=== PATIENT | male | born 1960 | race Two or more races ===

== ENCOUNTER 2019-12-08 08:26 | Inpatient (IN) | payer MEDICARE, MEDICAID ==
[~2019-12-08] VITALS: Ht 160 cm; Wt 89.4 kg
[~2019-12-08 08:26] MED LIST: GABA-529 PO; LOSA25TA26 PO; OMEP20TA2 PO; PRAV10TA35 PO; PROP40TA7 PO; QUET25TA PO; TAMS0.4C31 PO; TRAZ-251 PO
[2019-12-08] MEDS ORDERED: ONDANSETRON HCL 4MG/2ML INJ IV STA (09:47)
[2019-12-08] MEDS ORDERED: MORPHINE SULFATE 4 MG/ML CPJ (NOT FOR IM USE) IV STA (09:47)
[2019-12-08] MEDS ORDERED: SODIUM CHLORIDE 0.9% 1,000 ML IV ONE (09:47)
[2019-12-08 11:13] LABS: BASOPHILS % 0.7 % (0.0-2.0); EOSINOPHILS % 2.7 % (0.0-5.0); HEMATOCRIT. 45.1 % (42.0-52.0); HEMOGLOBIN. 15.1 g/dL (14.0-18.0); MEAN CORPUSCULAR HEMOGLOBIN 31.7 pg (28.0-32.0); MEAN CORPUSCULAR VOLUME 94.7 fL (80.0-94.0); MEAN PLATELET VOLUME 8.6 fl (7.4-10.4); MONOCYTES % 8.1 % (2.0-8.0); NEUTROPHILS % 60.5 % (40.0-76.0); PLATELET 236 x1000/uL (130-400); RED BLOOD CELL COUNT 4.76 mill/uL (4.7-6.1); RED CELL DISTRIBUTION WIDTH 13.5 % (11.6-14.6)
[2019-12-08 11:19] LABS: CHLORIDE 104 mEq/L (98-107)
[2019-12-08 11:20] LABS: CLARITY URINE CLEAR (CLEAR); COLOR URINE YELLOW (YELLOW); KETONES URINE NEGATIVE (NEGATIVE); LEUKOCYTE ESTERASE URINE NEGATIVE (NEGATIVE); NITRITE URINE NEGATIVE (NEGATIVE); OCCULT BLOOD URINE NEGATIVE (NEGATIVE); PH URINE >=9.0 (4.5-8.0); PROTEIN URINE 1+ (NEGATIVE); SPECIFIC GRAVITY URINE 1.019 (1.005-1.030); UROBILINOGEN URINE 0.2 E.U./dL (0.2-1.0)
[2019-12-08] MEDS ORDERED: MORPHINE SULFATE 4 MG/ML CPJ (NOT FOR IM USE) IV ONE (12:30)
[2019-12-08] MEDS ORDERED: LEVOFLOXACIN 500MG PREMIX 100 ML IV NR (14:00)
[2019-12-08] MEDS ORDERED: METRONIDAZOLE 500 MG PREMIX 100 ML IV NR (15:00)
[2019-12-08] MEDS ORDERED: KETOROLAC 15MG/ML VIAL IV ONE (18:15)
[2019-12-08 21:05] VITALS: BP 128/82
[2019-12-08] MEDS ORDERED: LORAZEPAM 0.5MG TABLET PO PRN (21:45)
[2019-12-08] MEDS ORDERED: GUAIFENESIN 200MG/10ML SUGAR FREE UDC PO PRN (21:45)
[2019-12-08] MEDS ORDERED: DOCUSATE SODIUM 100MG CAPSULE PO PRN (21:45)
[2019-12-08] MEDS ORDERED: CLONIDINE 0.1MG TABLET PO PRN (21:45)
[2019-12-08] MEDS ORDERED: ACETAMINOPHEN 325MG TABLET PO PRN (21:45)
[2019-12-08] MEDS ORDERED: IPRATROPIUM/ALBUTEROL 0.5-3(2.5)MG/3ML NEB HHN PRN (21:45)
[2019-12-08] MEDS: MORPHINE SULFATE 2 MG/ML CPJ (NOT FOR IM USE) IV PRN (22:01)
[2019-12-08] MEDS: CEFTRIAXONE 1 G PREMIX 50 ML IV SCH (23:48)
[2019-12-08] MEDS: SODIUM CHLORIDE 0.9% 1,000 ML IV SCH (23:49)
[2019-12-09] VITALS: BP 126/82
[2019-12-09] MEDS: METRONIDAZOLE 500 MG PREMIX 100 ML IV SCH ×4 (00:12→22:43)
[2019-12-09 04:00] VITALS: BP 137/79
[2019-12-09] MEDS: MORPHINE SULFATE 2 MG/ML CPJ (NOT FOR IM USE) IV PRN ×5 (04:04→21:09)
[2019-12-09 07:55] LABS: CHLORIDE 108 mEq/L (98-107)
[2019-12-09 07:59] LABS: BASOPHILS % 0.4 % (0.0-2.0); EOSINOPHILS % 7.4 % (0.0-5.0); HEMATOCRIT. 39.6 % (42.0-52.0); HEMOGLOBIN. 13.5 g/dL (14.0-18.0); LYMPHOCYTES % 25.3 % (20.0-50.0); MEAN CORPUSCULAR HEMOGLOBIN 32.1 pg (28.0-32.0); MEAN CORPUSCULAR VOLUME 94.3 fL (80.0-94.0); MEAN PLATELET VOLUME 8.1 fl (7.4-10.4); MONOCYTES % 7.9 % (2.0-8.0); PLATELET 198 x1000/uL (130-400); RED CELL DISTRIBUTION WIDTH 13.2 % (11.6-14.6)
[2019-12-09 08:00] VITALS: BP 141/83
[2019-12-09] MEDS: SODIUM CHLORIDE 0.9% 1,000 ML IV SCH ×2 (08:00→18:03)
[2019-12-09] MEDS ORDERED: METOCLOPRAMIDE HCL 10MG/2ML VIAL IV NR (10:00)
[2019-12-09 12:00] VITALS: BP 137/80
[2019-12-09] MEDS ORDERED: MIDAZOLAM HCL 5 MG/5 ML VIAL ONE (12:26)
[2019-12-09] MEDS ORDERED: FENTANYL CITRATE/PF 50MCG/ML 2ML VIAL ONE ×3 (12:27→12:48)
[2019-12-09] MEDS ORDERED: FENTANYL CITRATE/PF 50MCG/ML 2ML VIAL IV PRN (12:28)
[2019-12-09] MEDS ORDERED: MIDAZOLAM HCL 2 MG/2 ML VIAL IV PRN (12:29)
[2019-12-09] MEDS ORDERED: DIPHENHYDRAMINE 50MG/ML VIAL IV PRN (12:41)
[2019-12-09] MEDS ORDERED: DIPHENHYDRAMINE 50MG/ML VIAL ONE ×2 (12:43→12:51)
[2019-12-09 16:00] VITALS: BP 131/91
[2019-12-09 20:00] VITALS: BP 134/89
[2019-12-09] MEDS: TRAZODONE HCL 50MG TABLET PO SCH ×2 (20:54→21:10)
[2019-12-09] MEDS: QUETIAPINE FUMARATE 25MG TABLET PO SCH (21:09)
[2019-12-09] MEDS: GABAPENTIN 100MG CAPSULE PO SCH (21:09)
[2019-12-09] MEDS: TAMSULOSIN HCL 0.4MG SR CAPSULE PO SCH (21:10)
[2019-12-09] MEDS: ATORVASTATIN CALCIUM 10MG TABLET PO SCH (21:10)
[2019-12-09] MEDS: CEFTRIAXONE 1 G PREMIX 50 ML IV SCH (22:44)
[2019-12-10] VITALS: BP 138/87
[2019-12-10] MEDS: SODIUM CHLORIDE 0.9% 1,000 ML IV SCH ×2 (00:24→14:05)
[2019-12-10] MEDS: MORPHINE SULFATE 2 MG/ML CPJ (NOT FOR IM USE) IV PRN ×6 (01:27→23:40)
[2019-12-10 04:00] VITALS: BP 134/92
[2019-12-10] MEDS: METRONIDAZOLE 500 MG PREMIX 100 ML IV SCH ×2 (06:31→13:01)
[2019-12-10 07:41] LABS: BASOPHILS % 0.6 % (0.0-2.0); EOSINOPHILS % 10.7 % (0.0-5.0); HEMATOCRIT. 42.9 % (42.0-52.0); HEMOGLOBIN. 14.7 g/dL (14.0-18.0); LYMPHOCYTES % 35.9 % (20.0-50.0); MEAN CORPUSCULAR HEMOGLOBIN 32.5 pg (28.0-32.0); MEAN CORPUSCULAR VOLUME 94.4 fL (80.0-94.0); MEAN PLATELET VOLUME 8.2 fl (7.4-10.4); MONOCYTES % 7.4 % (2.0-8.0); NEUTROPHILS % 45.4 % (40.0-76.0); PLATELET 203 x1000/uL (130-400); RED BLOOD CELL COUNT 4.54 mill/uL (4.7-6.1); RED CELL DISTRIBUTION WIDTH 13.3 % (11.6-14.6)
[2019-12-10 07:55] LABS: CHLORIDE 104 mEq/L (98-107)
[2019-12-10 08:00] VITALS: BP 138/88
[2019-12-10 08:09] LABS: LDL CHOLESTEROL 116 mg/dL (5-100)
[2019-12-10 08:11] LABS: HDL CHOLESTEROL 68 mg/dL (40-59)
[2019-12-10 08:16] LABS: VITAMIN B12 SERUM 986 pg/mL (211-911)
[2019-12-10 08:24] LABS: FOLIC ACID (FOLATE) SERUM > 20.00 ng/mL (>5.38)
[2019-12-10] MEDS: HYDROCODONE/ACETAMINOPHEN 5/325MG TABLET PO PRN ×3 (08:58→17:22)
[2019-12-10] MEDS: LOSARTAN POTASSIUM 25 MG TABLET PO SCH (08:58)
[2019-12-10 12:00] VITALS: BP 119/81
[2019-12-10] MEDS ORDERED: IOHEXOL-300 100 ML BOTTLE ONE (14:57)
[2019-12-10] MEDS ORDERED: IODIXANOL 320MG/ML 100 ML BOTTLE IV ONE (14:58)
[2019-12-10] MEDS ORDERED: LIDOCAINE HCL 1% 20ML VIAL (Pyxis) INJ ONE (14:58)
[2019-12-10] MEDS ORDERED: HEPARIN 1,000 UNITS PREMIX 0 ML IV ONE (14:59)
[2019-12-10] MEDS ORDERED: MIDAZOLAM HCL 2 MG/2 ML VIAL ONE (15:02)
[2019-12-10] MEDS ORDERED: FENTANYL CITRATE/PF 50MCG/ML 2ML VIAL ONE (15:02)
[2019-12-10] MEDS: OMEPRAZOLE 20MG CAPSULE EXTENDED RELEASE PO SCH ×2 (15:20→21:12)
[2019-12-10 16:03] VITALS: BP 130/77
[2019-12-10 20:00] VITALS: BP 134/96
[2019-12-10] MEDS: TAMSULOSIN HCL 0.4MG SR CAPSULE PO SCH (21:12)
[2019-12-10] MEDS: CEFTRIAXONE 1 G PREMIX 50 ML IV SCH (21:12)
[2019-12-10] MEDS: ATORVASTATIN CALCIUM 10MG TABLET PO SCH (21:12)
[2019-12-10] MEDS: GABAPENTIN 100MG CAPSULE PO SCH (21:13)
[2019-12-10] MEDS: QUETIAPINE FUMARATE 25MG TABLET PO SCH (21:13)
[2019-12-10] MEDS: METRONIDAZOLE 500MG TABLET PO SCH (23:40)
[2019-12-11] MEDS: SODIUM CHLORIDE 0.9% 1,000 ML IV SCH ×2 (01:09→10:11)
[2019-12-11 04:00] VITALS: BP 155/88
[2019-12-11] MEDS: MORPHINE SULFATE 2 MG/ML CPJ (NOT FOR IM USE) IV PRN ×3 (05:00→13:27)
[2019-12-11] MEDS: METRONIDAZOLE 500MG TABLET PO SCH ×2 (05:00→13:27)
[2019-12-11] MEDS: OMEPRAZOLE 20MG CAPSULE EXTENDED RELEASE PO SCH (06:20)
[2019-12-11 06:39] LABS: CHLORIDE 105 mEq/L (98-107)
[2019-12-11 07:32] LABS: BASOPHILS % 0.5 % (0.0-2.0); EOSINOPHILS % 11.5 % (0.0-5.0); HEMATOCRIT. 42.7 % (42.0-52.0); HEMOGLOBIN. 14.3 g/dL (14.0-18.0); LYMPHOCYTES % 37.7 % (20.0-50.0); MEAN CORPUSCULAR HEMOGLOBIN 31.8 pg (28.0-32.0); MEAN CORPUSCULAR VOLUME 94.9 fL (80.0-94.0); MONOCYTES % 8.7 % (2.0-8.0); NEUTROPHILS % 41.6 % (40.0-76.0); PLATELET 210 x1000/uL (130-400); RED CELL DISTRIBUTION WIDTH 13.2 % (11.6-14.6)
[2019-12-11] MEDS: LOSARTAN POTASSIUM 25 MG TABLET PO SCH (07:51)
[2019-12-11 08:00] VITALS: BP 110/80
[2019-12-11] MEDS ORDERED: OMEP20CA14 PO (12:16)
[2019-12-11] MEDS ORDERED: METR-167 PO (12:16)
[2019-12-11 13:35] VITALS: BP 110/80
[2019-12-13] MEDS ORDERED: OMEPRAZOLE 20MG CAPSULE EXTENDED RELEASE PO SCH (07:20)
== END 2019-12-11 17:00 | disposition home or self-care (01) | DRG 392 ==
LOC: ER 08:26 → 6EST 18:02 → ENRESERV 19:13
PROVIDERS: ADMIT Internal Medicine; ATTEND Internal Medicine
PROC: 0DB68ZX Excision of Stomach, Via Natural or Artificial Opening Endoscopic, Diagnostic (ICD-10-PCS; principal; 2019-12-09)
DX: K29.60 Other gastritis without bleeding (principal); K57.32 Diverticulitis of large intestine without perforation or abscess without bleeding; K40.90 Unilateral inguinal hernia, without obstruction or gangrene, not specified as recurrent; K76.0 Fatty (change of) liver, not elsewhere classified; I10 Essential (primary) hypertension; E78.5 Hyperlipidemia, unspecified; D53.9 Nutritional anemia, unspecified; D72.1 Eosinophilia; Z96.653 Presence of artificial knee joint, bilateral; R80.9 Proteinuria, unspecified
CPT/HCPCS: 36415; 71045; 74176; 76700; 80048; 80053; 80061; 81003; 82607; 82746; 83036; 85025; 88305; 88313; 93005; 99152; 99285; J0696; J1200; J1644; J1885; J1956; J2250; J2270; J2405; J2765; J3010; J3490; J7030; Q9967; G0500

== ENCOUNTER 2020-02-29 13:39 | Inpatient (IN) | payer MEDICARE, MEDICAID ==
[~2020-02-29] VITALS: Ht 160 cm; Wt 87.1 kg
[~2020-02-29 13:39] MED LIST changes: +MY80 PO; +OMEP20CA14 PO; -OMEP20TA2 PO; +SUCR1ORA15 PO
[2020-02-29] MEDS ORDERED: ONDANSETRON HCL 4MG/2ML INJ IV STA (13:58)
[2020-02-29] MEDS ORDERED: FAMOTIDINE 20MG/2ML VIAL IV STA (13:58)
[2020-02-29] MEDS ORDERED: MORPHINE SULFATE 4 MG/ML CPJ (NOT FOR IM USE) IV STA (13:58)
[2020-02-29] MEDS ORDERED: SODIUM CHLORIDE 0.9% 1,000 ML IV ONE (13:58)
[2020-02-29 14:48] LABS: BASOPHILS % 0.4 % (0.0-2.0); EOSINOPHILS % 0.9 % (0.0-5.0); HEMATOCRIT. 46.3 % (42.0-52.0); LYMPHOCYTES % 37.4 % (20.0-50.0); MEAN CORPUSCULAR HEMOGLOBIN 31.2 pg (28.0-32.0); MEAN CORPUSCULAR VOLUME 90.2 fL (80.0-94.0); MEAN PLATELET VOLUME 8.2 fl (7.4-10.4); NEUTROPHILS % 52.3 % (40.0-76.0); PLATELET 293 x1000/uL (130-400); RED BLOOD CELL COUNT 5.13 mill/uL (4.7-6.1); RED CELL DISTRIBUTION WIDTH 13.3 % (11.6-14.6)
[2020-02-29 14:54] LABS: CHLORIDE 92 mEq/L (98-107)
[2020-02-29 14:58] LABS: CLARITY URINE CLEAR (CLEAR); COLOR URINE YELLOW (YELLOW); ETHANOL BLOOD 261 mg/dL; KETONES URINE NEGATIVE (NEGATIVE); LEUKOCYTE ESTERASE URINE NEGATIVE (NEGATIVE); NITRITE URINE NEGATIVE (NEGATIVE); OCCULT BLOOD URINE NEGATIVE (NEGATIVE); PROTEIN URINE NEGATIVE (NEGATIVE); PROTHROMBIN TIME 10.5 sec (9.6-11.0); SPECIFIC GRAVITY URINE 1.003 (1.005-1.030); UROBILINOGEN URINE 0.2 E.U./dL (0.2-1.0)
[2020-02-29 15:11] LABS: *BARBITURATES SCREEN URINE NEGATIVE (NEGATIVE)
[2020-02-29 15:12] LABS: *AMPHETAMINES SCREEN URINE NEGATIVE (NEGATIVE); *BENZODIAZEPINES SCREEN URINE NEGATIVE (NEGATIVE); *COCAINE SCREEN URINE NEGATIVE (NEGATIVE); CANNABINOID URINE SCREEN NEGATIVE (NEGATIVE); METHADONE URINE SCREEN NEGATIVE (NEGATIVE); OPIATES URINE SCREEN NEGATIVE (NEGATIVE); PHENCYCLIDINE URINE SCREEN NEGATIVE (NEGATIVE)
[2020-02-29] MEDS ORDERED: ASPIRIN 81MG TABLET PO ONE (16:15)
[2020-02-29] MEDS ORDERED: KCL 10MEQ/50ML PREMIX 50 ML IV ONE (16:15)
[2020-02-29] MEDS ORDERED: POTASSIUM CHLORIDE 20MEQ TABLET SR PO ONE (16:15)
[2020-02-29] MEDS ORDERED: LORAZEPAM 2MG/ML CPJ IV ONE (16:30)
[2020-02-29] MEDS: MORPHINE SULFATE 2 MG/ML CPJ (NOT FOR IM USE) IV PRN (21:13)
[2020-03-01] MEDS: MORPHINE SULFATE 2 MG/ML CPJ (NOT FOR IM USE) IV PRN ×4 (01:28→20:45)
[2020-03-01] MEDS ORDERED: CLONIDINE 0.1MG TABLET PO PRN (10:15)
[2020-03-01] MEDS ORDERED: LORAZEPAM 0.5MG TABLET PO PRN (10:15)
[2020-03-01] MEDS ORDERED: GUAIFENESIN 200MG/10ML SUGAR FREE UDC PO PRN (10:15)
[2020-03-01] MEDS ORDERED: NITROGLYCERIN 0.4MG TABLET SL SL PRN (10:15)
[2020-03-01] MEDS ORDERED: IPRATROPIUM/ALBUTEROL 0.5-3(2.5)MG/3ML NEB HHN PRN (10:15)
[2020-03-01] MEDS ORDERED: ACETAMINOPHEN 325MG TABLET PO PRN (10:15)
[2020-03-01] MEDS ORDERED: MAGNESIUM/ALUMINUM HYDROXIDE/SIMETHICONE 30ML UDC PO PRN (10:15)
[2020-03-01] MEDS ORDERED: DOCUSATE SODIUM 100MG CAPSULE PO PRN (10:15)
[2020-03-01] MEDS: ONDANSETRON HCL 4MG/2ML INJ IV PRN ×2 (10:53→10:54)
[2020-03-01] MEDS: HYDROCODONE/ACETAMINOPHEN 5/325MG TABLET PO PRN (10:53)
[2020-03-01 12:39] LABS: BASOPHILS % 0.7 % (0.0-2.0); EOSINOPHILS % 4.7 % (0.0-5.0); HEMATOCRIT. 45.1 % (42.0-52.0); HEMOGLOBIN. 15.3 g/dL (14.0-18.0); MEAN CORPUSCULAR HEMOGLOBIN 31.1 pg (28.0-32.0); MEAN CORPUSCULAR VOLUME 91.4 fL (80.0-94.0); MEAN PLATELET VOLUME 8.1 fl (7.4-10.4); NEUTROPHILS % 58.6 % (40.0-76.0); PLATELET 247 x1000/uL (130-400); RED BLOOD CELL COUNT 4.93 mill/uL (4.7-6.1); RED CELL DISTRIBUTION WIDTH 13.3 % (11.6-14.6)
[2020-03-01 12:56] LABS: CHLORIDE 101 mEq/L (98-107)
[2020-03-01] MEDS: PANTOPRAZOLE SODIUM 40 MG/VIAL IV SCH (12:56)
[2020-03-01] MEDS: METOPROLOL TARTRATE 25MG TABLET PO SCH ×2 (12:57→20:31)
[2020-03-01 13:01] LABS: PHOSPHORUS 2.1 mg/dL (2.5-4.9)
[2020-03-01 13:06] LABS: CREATINE KINASE MB FRACTION 2.7 ng/mL (0.5-3.6)
[2020-03-01 13:09] LABS: CREATINE KINASE 392 IU/L (39-308)
[2020-03-01 18:46] VITALS: BP 135/93
[2020-03-01 19:03] VITALS: BP 135/93
[2020-03-01 20:00] VITALS: BP 134/88
[2020-03-01] MEDS ORDERED: POTASSIUM PHOS,M-BASIC-D-BASIC 30 MMOL in DEXT 5% WATER 500 ML IV ONE (20:00)
[2020-03-01] MEDS ORDERED: FOLIC ACID 1 MG, MVI, ADULT NO.1 10 ML in DEXTROSE 5% WATER 1,000 ML IV ONE ×3 (20:00)
[2020-03-01] MEDS: QUETIAPINE FUMARATE 25MG TABLET PO SCH (20:29)
[2020-03-01] MEDS: ATORVASTATIN CALCIUM 10MG TABLET PO SCH (20:29)
[2020-03-01] MEDS: CHLORDIAZEPOXIDE 25MG CAPSULE PO SCH (20:29)
[2020-03-01] MEDS: TRAZODONE HCL 50MG TABLET PO SCH (20:31)
[2020-03-01] MEDS: TAMSULOSIN HCL 0.4MG SR CAPSULE PO SCH (20:31)
[2020-03-01] MEDS: SODIUM CHLORIDE 0.9% 1,000 ML IV SCH (20:32)
[2020-03-01] MEDS: SUCRALFATE 1 G/10 ML UDC PO SCH (20:33)
[2020-03-01 22:00] VITALS: BP 140/85
[2020-03-02] VITALS (12 sets, daily range): BP systolic 94–156; BP diastolic 62–98
[2020-03-02] MEDS: MORPHINE SULFATE 2 MG/ML CPJ (NOT FOR IM USE) IV PRN ×2 (01:25→05:36)
[2020-03-02] MEDS: SODIUM CHLORIDE 0.9% 1,000 ML IV SCH ×2 (04:30→18:00)
[2020-03-02] MEDS: ONDANSETRON HCL 4MG/2ML INJ IV PRN (05:15)
[2020-03-02] MEDS: SUCRALFATE 1 G/10 ML UDC PO SCH ×4 (05:34→20:49)
[2020-03-02] MEDS: CHLORDIAZEPOXIDE 25MG CAPSULE PO SCH ×3 (05:34→20:49)
[2020-03-02 07:15] LABS: HEMATOCRIT. 44.1 % (42.0-52.0); MEAN CORPUSCULAR HEMOGLOBIN 31.2 pg (28.0-32.0); MEAN CORPUSCULAR VOLUME 91.8 fL (80.0-94.0); MEAN PLATELET VOLUME 8.2 fl (7.4-10.4); PLATELET 251 x1000/uL (130-400); RED CELL DISTRIBUTION WIDTH 13.6 % (11.6-14.6)
[2020-03-02 07:28] LABS: CHLORIDE 100 mEq/L (98-107)
[2020-03-02] MEDS: LOSARTAN POTASSIUM 25 MG TABLET PO SCH (09:43)
[2020-03-02] MEDS: METOPROLOL TARTRATE 25MG TABLET PO SCH ×2 (09:43→20:49)
[2020-03-02] MEDS: THIAMINE HCL 100MG TABLET PO SCH (09:44)
[2020-03-02] MEDS: PANTOPRAZOLE SODIUM 40 MG/VIAL IV SCH (09:44)
[2020-03-02 10:55] LABS: PLATELET ESTIMATE NORMAL
[2020-03-02] MEDS: HYDROCODONE/ACETAMINOPHEN 5/325MG TABLET PO PRN ×2 (13:08→20:48)
[2020-03-02] MEDS: QUETIAPINE FUMARATE 25MG TABLET PO SCH (20:48)
[2020-03-02] MEDS: TRAZODONE HCL 50MG TABLET PO SCH (20:48)
[2020-03-02] MEDS: ATORVASTATIN CALCIUM 10MG TABLET PO SCH (20:48)
[2020-03-02] MEDS: TAMSULOSIN HCL 0.4MG SR CAPSULE PO SCH (20:49)
[2020-03-03] VITALS: BP 133/86
[2020-03-03] MEDS: SODIUM CHLORIDE 0.9% 1,000 ML IV SCH (00:09)
[2020-03-03 02:00] VITALS: BP 125/80
[2020-03-03 04:00] VITALS: BP 92/61
[2020-03-03 05:31] VITALS: BP 106/71
[2020-03-03] MEDS: CHLORDIAZEPOXIDE 25MG CAPSULE PO SCH (05:56)
[2020-03-03] MEDS: SUCRALFATE 1 G/10 ML UDC PO SCH ×2 (05:56→12:21)
[2020-03-03 07:08] LABS: CHLORIDE 106 mEq/L (98-107)
[2020-03-03 07:11] LABS: HEMATOCRIT. 43.5 % (42.0-52.0); HEMOGLOBIN. 14.6 g/dL (14.0-18.0); MEAN CORPUSCULAR VOLUME 92.8 fL (80.0-94.0); MEAN PLATELET VOLUME 8.4 fl (7.4-10.4); PLATELET 235 x1000/uL (130-400); RED BLOOD CELL COUNT 4.69 mill/uL (4.7-6.1); RED CELL DISTRIBUTION WIDTH 13.8 % (11.6-14.6)
[2020-03-03 08:02] VITALS: BP 118/75
[2020-03-03] MEDS: PANTOPRAZOLE SODIUM 40 MG/VIAL IV SCH (08:35)
[2020-03-03] MEDS: LOSARTAN POTASSIUM 25 MG TABLET PO SCH (08:36)
[2020-03-03] MEDS: THIAMINE HCL 100MG TABLET PO SCH (08:36)
[2020-03-03] MEDS: METOPROLOL TARTRATE 25MG TABLET PO SCH (08:36)
[2020-03-03 09:05] VITALS: BP 138/82
[2020-03-03 13:54] LABS: PLATELET ESTIMATE NORMAL
== END 2020-03-03 15:30 | disposition home or self-care (01) | DRG 897 ==
LOC: ER 13:39 → 3WST 18:48 → EDBEDREQ 18:52 → EDBEDREQTM 18:52 → CANRESERV 03-01 07:42 → ENRESERV 03-01 07:42
PROVIDERS: ADMIT Internal Medicine; ATTEND Internal Medicine
DX: F10.129 Alcohol abuse with intoxication, unspecified (principal); E87.1 Hypo-osmolality and hyponatremia; K29.70 Gastritis, unspecified, without bleeding; E87.6 Hypokalemia; I11.9 Hypertensive heart disease without heart failure; E78.5 Hyperlipidemia, unspecified; F41.1 Generalized anxiety disorder; K40.90 Unilateral inguinal hernia, without obstruction or gangrene, not specified as recurrent; K76.0 Fatty (change of) liver, not elsewhere classified; N32.0 Bladder-neck obstruction; G47.00 Insomnia, unspecified; E78.00 Pure hypercholesterolemia, unspecified; Z96.653 Presence of artificial knee joint, bilateral; R07.89 Other chest pain; K21.9 Gastro-esophageal reflux disease without esophagitis; Z82.49 Family history of ischemic heart disease and other diseases of the circulatory system; I25.2 Old myocardial infarction; Z79.899 Other long term (current) drug therapy
CPT/HCPCS: 36415; 71045; 80048; 80053; 80305; 80320; 81003; 82550; 82553; 83735; 83880; 84100; 84484; 85025; 85379; 93005; 93306; 99285; C9113; J2060; J2270; J2405; J3480; J3490; J7030; J7060; J7070; G0480

== ENCOUNTER 2020-05-24 06:33 | Emergency (ER) | payer MEDICARE, MEDICAID ==
[~2020-05-24] VITALS: Ht 160 cm; Wt 90.0 kg
[2020-05-24] MEDS ORDERED: ONDANSETRON HCL 4MG/2ML INJ IV STA (06:50)
[2020-05-24] MEDS ORDERED: MORPHINE SULFATE 4 MG/ML CPJ (NOT FOR IM USE) IV STA (06:50)
[2020-05-24 07:37] LABS: CLARITY URINE CLEAR (CLEAR); COLOR URINE DK YELLOW (YELLOW); KETONES URINE 1+ (NEGATIVE); LEUKOCYTE ESTERASE URINE NEGATIVE (NEGATIVE); NITRITE URINE NEGATIVE (NEGATIVE); OCCULT BLOOD URINE NEGATIVE (NEGATIVE); PH URINE 7.5 (4.5-8.0); PROTEIN URINE TRACE (NEGATIVE); SPECIFIC GRAVITY URINE 1.013 (1.005-1.030); UROBILINOGEN URINE 0.2 E.U./dL (0.2-1.0)
[2020-05-24 07:38] LABS: BASOPHILS % 0.7 % (0.0-2.0); EOSINOPHILS % 2.3 % (0.0-5.0); HEMATOCRIT. 51.4 % (42.0-52.0); HEMOGLOBIN. 17.6 g/dL (14.0-18.0); LYMPHOCYTES % 28.2 % (20.0-50.0); MEAN CORPUSCULAR VOLUME 87.5 fL (80.0-94.0); MEAN PLATELET VOLUME 8.3 fl (7.4-10.4); MONOCYTES % 7.3 % (2.0-8.0); NEUTROPHILS % 61.5 % (40.0-76.0); PLATELET 272 x1000/uL (130-400); RED BLOOD CELL COUNT 5.87 mill/uL (4.7-6.1)
[2020-05-24 07:39] LABS: CHLORIDE 98 mEq/L (98-107)
[2020-05-24 07:41] LABS: PROTHROMBIN TIME 10.7 sec (9.6-11.0)
[2020-05-24] MEDS ORDERED: KETOROLAC 30MG/ML VIAL IV ONE (08:45)
[2020-05-24 08:53] VITALS: BP 130/95
== END 2020-05-24 12:00 | disposition home or self-care (01) ==
LOC: ER 06:33
DX: R10.13 Epigastric pain (principal); I10 Essential (primary) hypertension; I25.2 Old myocardial infarction; E78.00 Pure hypercholesterolemia, unspecified
CPT/HCPCS: 36415; 74176; 80053; 81003; 83690; 85025; 85610; 96374; 96375; 99284; J1885; J2270; J2405

== ENCOUNTER 2020-06-09 01:57 | Inpatient (IN) | payer MEDICARE, OTHER ==
[~2020-06-09] VITALS: Ht 160 cm; Wt 90.7 kg
[2020-06-09] MEDS ORDERED: SODIUM CHLORIDE 0.9% 1,000 ML IV ONE (03:29)
[2020-06-09] MEDS ORDERED: METOCLOPRAMIDE HCL 10MG/2ML VIAL IV STA (03:29)
[2020-06-09] MEDS ORDERED: FAMOTIDINE 20MG/2ML VIAL IV STA (03:29)
[2020-06-09] MEDS ORDERED: MORPHINE SULFATE 4 MG/ML CPJ (NOT FOR IM USE) IV STA (03:29)
[2020-06-09 04:15] LABS: BASOPHILS % 0.2 % (0.0-2.0); MEAN CORPUSCULAR HEMOGLOBIN 29.5 pg (28.0-32.0); MEAN CORPUSCULAR VOLUME 86.7 fL (80.0-94.0); MEAN PLATELET VOLUME 7.9 fl (7.4-10.4); NEUTROPHILS % 74.8 % (40.0-76.0); PLATELET 329 x1000/uL (130-400); RED BLOOD CELL COUNT 5.08 mill/uL (4.7-6.1); RED CELL DISTRIBUTION WIDTH 14.2 % (11.6-14.6)
[2020-06-09 04:22] LABS: CHLORIDE 92 mEq/L (98-107)
[2020-06-09 04:37] LABS: ETHANOL BLOOD < 10 mg/dL
[2020-06-09] MEDS ORDERED: MORPHINE SULFATE 4 MG/ML CPJ (NOT FOR IM USE) IV NR (05:09)
[2020-06-09] MEDS ORDERED: ONDANSETRON HCL 4MG/2ML INJ IV NR (05:09)
[2020-06-09 05:19] LABS: CLARITY URINE CLEAR (CLEAR); COLOR URINE YELLOW (YELLOW); KETONES URINE 3+ (NEGATIVE); LEUKOCYTE ESTERASE URINE NEGATIVE (NEGATIVE); NITRITE URINE NEGATIVE (NEGATIVE); OCCULT BLOOD URINE 3+ (NEGATIVE); PROTEIN URINE 2+ (NEGATIVE); SPECIFIC GRAVITY URINE 1.017 (1.005-1.030); UROBILINOGEN URINE 0.2 E.U./dL (0.2-1.0)
[2020-06-09] MEDS ORDERED: GUAIFENESIN 200MG/10ML SUGAR FREE UDC PO PRN (08:45)
[2020-06-09] MEDS ORDERED: SODIUM CHLORIDE 0.9% 1,000 ML IV SCH (08:45)
[2020-06-09] MEDS ORDERED: CLONIDINE 0.1MG TABLET PO PRN (08:45)
[2020-06-09] MEDS ORDERED: DOCUSATE SODIUM 100MG CAPSULE PO PRN (08:45)
[2020-06-09] MEDS ORDERED: ACETAMINOPHEN 325MG TABLET PO PRN ×2 (08:45)
[2020-06-09] MEDS ORDERED: LORAZEPAM 0.5MG TABLET PO PRN (08:45)
[2020-06-09] MEDS ORDERED: IPRATROPIUM/ALBUTEROL 0.5-3(2.5)MG/3ML NEB HHN PRN (08:45)
[2020-06-09] MEDS: MORPHINE SULFATE 2 MG/ML CPJ (NOT FOR IM USE) IV PRN ×3 (08:56→19:49)
[2020-06-09] MEDS: PANTOPRAZOLE SODIUM 40 MG/VIAL IV SCH (08:56)
[2020-06-09] MEDS ORDERED: POTASSIUM CHLORIDE INJ 40 MEQ in DEXT 5% WATER 250 ML IV NR (09:00)
[2020-06-09 09:20] LABS: SODIUM URINE RANDOM 75 mEq/L
[2020-06-09 10:00] VITALS: BP 140/75
[2020-06-09 12:00] VITALS: BP 132/75
[2020-06-09] MEDS: HYDROCODONE/ACETAMINOPHEN 5/325MG TABLET PO PRN ×2 (15:12→23:02)
[2020-06-09 16:00] VITALS: BP 130/84
[2020-06-09] MEDS ORDERED: DIATR MEGLU/DIATRIZOATE SOLN 30ML PO SCH (16:30)
[2020-06-09] MEDS: GABAPENTIN 100MG CAPSULE PO SCH (16:50)
[2020-06-09] MEDS: SUCRALFATE 1G TABLET PO SCH ×2 (16:50→23:02)
[2020-06-09] MEDS: SODIUM CHLORIDE 0.9% 1,000 ML IV SCH (16:51)
[2020-06-09] MEDS: ONDANSETRON HCL 4MG/2ML INJ IV PRN (20:45)
[2020-06-09] MEDS: TRAZODONE HCL 50MG TABLET PO PRN (23:01)
[2020-06-09] MEDS: TAMSULOSIN HCL 0.4MG SR CAPSULE PO SCH (23:01)
[2020-06-09] MEDS: QUETIAPINE FUMARATE 25MG TABLET PO SCH (23:02)
[2020-06-09] MEDS: ATORVASTATIN CALCIUM 10MG TABLET PO SCH (23:02)
[2020-06-09] MEDS ORDERED: IOHEXOL-300 100 ML BOTTLE ONE (23:26)
[2020-06-09] MEDS ORDERED: POTASSIUM CHLORIDE 20MEQ TABLET SR PO NR (23:34)
[2020-06-10] VITALS: BP 151/79
[2020-06-10] MEDS: ASPIRIN 81MG TABLET PO SCH ×2 (00:03→09:19)
[2020-06-10] MEDS: MORPHINE SULFATE 2 MG/ML CPJ (NOT FOR IM USE) IV PRN ×6 (02:03→23:24)
[2020-06-10] MEDS ORDERED: POTASSIUM CHLORIDE 20MEQ TABLET SR PO SCH (03:30)
[2020-06-10 04:00] VITALS: BP 119/83
[2020-06-10] MEDS: ONDANSETRON HCL 4MG/2ML INJ IV PRN ×2 (06:12→23:35)
[2020-06-10] MEDS: SUCRALFATE 1G TABLET PO SCH ×4 (07:10→21:39)
[2020-06-10 08:00] VITALS: BP 163/103
[2020-06-10] MEDS: PANTOPRAZOLE SODIUM 40 MG/VIAL IV SCH (09:19)
[2020-06-10] MEDS: HYDROCODONE/ACETAMINOPHEN 5/325MG TABLET PO PRN (09:20)
[2020-06-10] MEDS: LOSARTAN POTASSIUM 25 MG TABLET PO SCH (09:20)
[2020-06-10] MEDS: GABAPENTIN 100MG CAPSULE PO SCH ×3 (09:20→17:26)
[2020-06-10 12:00] VITALS: BP 127/80
[2020-06-10] MEDS: SODIUM CHLORIDE 0.9% 1,000 ML IV SCH (13:25)
[2020-06-10] MEDS ORDERED: LEVOFLOXACIN 500MG TABLET PO SCH (14:30)
[2020-06-10] MEDS ORDERED: METRONIDAZOLE 500MG TABLET PO SCH (14:30)
[2020-06-10 16:00] VITALS: BP 113/82
[2020-06-10 17:09] LABS: BASOPHILS % 1.2 % (0.0-2.0); HEMATOCRIT. 41.5 % (42.0-52.0); HEMOGLOBIN. 14.1 g/dL (14.0-18.0); LYMPHOCYTES % 35.5 % (20.0-50.0); MEAN CORPUSCULAR HEMOGLOBIN 29.8 pg (28.0-32.0); MEAN CORPUSCULAR VOLUME 87.7 fL (80.0-94.0); MEAN PLATELET VOLUME 7.2 fl (7.4-10.4); MONOCYTES % 10.2 % (2.0-8.0); NEUTROPHILS % 51.1 % (40.0-76.0); PLATELET 250 x1000/uL (130-400); RED BLOOD CELL COUNT 4.73 mill/uL (4.7-6.1); RED CELL DISTRIBUTION WIDTH 14.3 % (11.6-14.6)
[2020-06-10 17:16] LABS: CHLORIDE 103 mEq/L (98-107)
[2020-06-10] MEDS ORDERED: POTASSIUM CHLORIDE 20MEQ TABLET SR PO NR (17:30)
[2020-06-10 18:38] LABS: CREATINE KINASE MB FRACTION 8.8 ng/mL (0.5-3.6)
[2020-06-10 20:00] VITALS: BP 131/94
[2020-06-10] MEDS: ATORVASTATIN CALCIUM 10MG TABLET PO SCH (21:39)
[2020-06-10] MEDS: TRAZODONE HCL 50MG TABLET PO PRN (21:39)
[2020-06-10] MEDS: TAMSULOSIN HCL 0.4MG SR CAPSULE PO SCH (21:39)
[2020-06-10] MEDS: QUETIAPINE FUMARATE 25MG TABLET PO SCH (21:39)
[2020-06-10] MEDS: SIMETHICONE 80MG TABLET CHEW PO PRN (21:49)
[2020-06-11] VITALS: BP 133/80
[2020-06-11] MEDS: MORPHINE SULFATE 2 MG/ML CPJ (NOT FOR IM USE) IV PRN (03:28)
[2020-06-11 04:00] VITALS: BP 128/79
[2020-06-11] MEDS: SUCRALFATE 1G TABLET PO SCH ×3 (05:29→17:16)
[2020-06-11 08:00] VITALS: BP 114/81
[2020-06-11] MEDS: SODIUM CHLORIDE 0.9% 1,000 ML IV SCH (08:15)
[2020-06-11] MEDS: SIMETHICONE 80MG TABLET CHEW PO PRN (08:56)
[2020-06-11] MEDS: PANTOPRAZOLE SODIUM 40 MG/VIAL IV SCH (08:56)
[2020-06-11] MEDS: ASPIRIN 81MG TABLET PO SCH (08:56)
[2020-06-11] MEDS: HYDROCODONE/ACETAMINOPHEN 5/325MG TABLET PO PRN (08:57)
[2020-06-11] MEDS: GABAPENTIN 100MG CAPSULE PO SCH ×3 (08:57→17:00)
[2020-06-11] MEDS: LOSARTAN POTASSIUM 25 MG TABLET PO SCH (08:57)
[2020-06-11 12:00] VITALS: BP 130/78
[2020-06-11] MEDS: METOCLOPRAMIDE HCL 10MG/2ML VIAL IV SCH ×2 (12:44→17:16)
[2020-06-11 15:19] LABS: CHLORIDE 103 mEq/L (98-107)
[2020-06-11 15:27] LABS: CREATINE KINASE 606 IU/L (39-308)
[2020-06-11 16:00] VITALS: BP 143/83
== END 2020-06-11 17:39 | disposition left against medical advice (07) | DRG 392 ==
LOC: ER 02:03 → 7WST 05:10 → EDBEDREQTM 05:38 → EDBEDREQ 05:38 → ENRESERV 07:54 → 6WST 06-10 15:05
PROVIDERS: ADMIT Internal Medicine; ATTEND Internal Medicine
DX: K29.20 Alcoholic gastritis without bleeding (principal); I50.32 Chronic diastolic (congestive) heart failure; E87.1 Hypo-osmolality and hyponatremia; M62.82 Rhabdomyolysis; E87.2 Acidosis; I11.0 Hypertensive heart disease with heart failure; E86.1 Hypovolemia; E87.6 Hypokalemia; E87.8 Other disorders of electrolyte and fluid balance, not elsewhere classified; K57.90 Diverticulosis of intestine, part unspecified, without perforation or abscess without bleeding; K40.90 Unilateral inguinal hernia, without obstruction or gangrene, not specified as recurrent; N32.0 Bladder-neck obstruction; K21.9 Gastro-esophageal reflux disease without esophagitis; Z20.828 Contact with and (suspected) exposure to other viral communicable diseases; F41.1 Generalized anxiety disorder; Z96.653 Presence of artificial knee joint, bilateral; G47.00 Insomnia, unspecified; I25.2 Old myocardial infarction; D72.810 Lymphocytopenia; D72.821 Monocytosis (symptomatic); I25.10 Atherosclerotic heart disease of native coronary artery without angina pectoris; K76.0 Fatty (change of) liver, not elsewhere classified; E78.5 Hyperlipidemia, unspecified; F10.10 Alcohol abuse, uncomplicated
CPT/HCPCS: 36415; 71045; 74177; 76705; 80048; 80053; 80320; 81003; 82533; 82550; 82553; 83605; 83735; 83935; 84132; 84295; 84300; 84443; 84484; 85025; 87635; 93005; 93306; 99285; C9113; J2270; J2405; J2765; J3480; J3490; J7030; J7060; Q9963; Q9967; G0480

== ENCOUNTER 2021-09-02 01:22 | Emergency (ER) | payer MEDICARE, MEDICAID ==
[~2021-09-02] VITALS: Ht 165.1 cm; Wt 92.0 kg
[~2021-09-02 01:22] MED LIST changes: -MY80 PO; +SIME80TA16 PO
[2021-09-02] MEDS ORDERED: MAGNESIUM/ALUMINUM HYDROXIDE/SIMETHICONE 30ML UDC PO STA ×2 (01:47→06:14)
[2021-09-02] MEDS ORDERED: FAMOTIDINE 20MG/2ML VIAL IV STA (01:47)
[2021-09-02] MEDS ORDERED: SODIUM CHLORIDE 0.9% 1,000 ML IV ONE (02:00)
[2021-09-02 02:52] LABS: BASOPHILS % 0.7 % (0.0-2.0); EOSINOPHILS % 0.4 % (0.0-5.0); HEMATOCRIT. 49.2 % (42.0-52.0); HEMOGLOBIN. 16.1 g/dL (14.0-18.0); LYMPHOCYTES % 36.5 % (20.0-50.0); MEAN CORPUSCULAR HEMOGLOBIN 30.2 pg (28.0-32.0); MEAN CORPUSCULAR VOLUME 91.9 fL (80.0-94.0); MONOCYTES % 8.7 % (2.0-8.0); NEUTROPHILS % 53.7 % (40.0-76.0); PLATELET 301 x1000/uL (130-400); RED BLOOD CELL COUNT 5.35 mill/uL (4.7-6.1); RED CELL DISTRIBUTION WIDTH 14.9 % (11.6-14.6)
[2021-09-02 03:12] LABS: CLARITY URINE CLEAR (CLEAR); COLOR URINE DARK YELLOW (YELLOW); KETONES URINE 1+ (NEGATIVE); LEUKOCYTE ESTERASE URINE NEGATIVE (NEGATIVE); NITRITE URINE NEGATIVE (NEGATIVE); OCCULT BLOOD URINE NEGATIVE (NEGATIVE); PH URINE 5.5 (4.5-8.0); PROTEIN URINE 2+ (NEGATIVE); SPECIFIC GRAVITY URINE 1.026 (1.005-1.030)
[2021-09-02] MEDS ORDERED: KETOROLAC 15MG/ML VIAL IV ONE (03:30)
[2021-09-02 03:43] LABS: CHLORIDE 104 mEq/L (98-107)
[2021-09-02] MEDS ORDERED: ONDANSETRON HCL 4MG/2ML INJ IV ONE (03:45)
[2021-09-02] MEDS ORDERED: ONDANSETRON HCL 4MG/2ML INJ IV STA (03:51)
[2021-09-02] MEDS ORDERED: MORPHINE SULFATE 4 MG/ML CPJ (NOT FOR IM USE) IV STA (03:51)
[2021-09-02 05:30] VITALS: BP 121/90
[2021-09-02] MEDS ORDERED: VISCOUS LIDOCAINE 2% 15 ML UDC PO STA (06:14)
== END 2021-09-02 06:39 | disposition home or self-care (01) ==
LOC: ER 01:22
DX: R10.13 Epigastric pain (principal); K21.9 Gastro-esophageal reflux disease without esophagitis; E78.00 Pure hypercholesterolemia, unspecified; I10 Essential (primary) hypertension; Z79.899 Other long term (current) drug therapy
CPT/HCPCS: 36415; 71045; 74176; 76700; 80053; 81003; 83690; 85025; 93005; 96361; 96374; 96375; 96376; 99285; J1885; J2270; J2405; J3490; J7030

== ENCOUNTER 2021-12-01 10:12 | Inpatient (IN) | payer BC, MEDICAID ==
[~2021-12-01] VITALS: Ht 160 cm; Wt 90.3 kg
[2021-12-01] MEDS ORDERED: ONDANSETRON HCL 4MG/2ML INJ IV STA (10:31)
[2021-12-01] MEDS ORDERED: SODIUM CHLORIDE 0.9% 1,000 ML IV ONE (10:45)
[2021-12-01 11:11] LABS: BASOPHILS % 0.1 % (0.0-2.0); HEMOGLOBIN. 14.2 g/dL (14.0-18.0); LYMPHOCYTES % 19.7 % (20.0-50.0); MEAN CORPUSCULAR HEMOGLOBIN 29.8 pg (28.0-32.0); MEAN CORPUSCULAR VOLUME 90.3 fL (80.0-94.0); MEAN PLATELET VOLUME 7.5 fl (7.4-10.4); MONOCYTES % 6.5 % (2.0-8.0); NEUTROPHILS % 73.7 % (40.0-76.0); PLATELET 268 x1000/uL (130-400); RED BLOOD CELL COUNT 4.76 mill/uL (4.7-6.1); RED CELL DISTRIBUTION WIDTH 15.3 % (11.6-14.6)
[2021-12-01 11:14] LABS: CHLORIDE 102 mEq/L (98-107)
[2021-12-01] MEDS ORDERED: FAMOTIDINE 20MG/2ML VIAL IV ONE (11:15)
[2021-12-01 11:17] LABS: PROTHROMBIN TIME 10.4 sec (9.6-11.0)
[2021-12-01 11:18] LABS: ETHANOL BLOOD < 10 mg/dL
[2021-12-01 12:01] LABS: CLARITY URINE CLEAR (CLEAR); COLOR URINE YELLOW (YELLOW); KETONES URINE NEGATIVE (NEGATIVE); LEUKOCYTE ESTERASE URINE NEGATIVE (NEGATIVE); NITRITE URINE NEGATIVE (NEGATIVE); OCCULT BLOOD URINE NEGATIVE (NEGATIVE); PH URINE 7.5 (4.5-8.0); PROTEIN URINE NEGATIVE (NEGATIVE); UROBILINOGEN URINE 0.2 E.U./dL (0.2-1.0)
[2021-12-01] MEDS ORDERED: POTASSIUM CHLORIDE 20MEQ TABLET SR PO ONE (12:15)
[2021-12-01] MEDS ORDERED: ASPIRIN 81MG TABLET PO ONE (12:15)
[2021-12-01] MEDS ORDERED: VISCOUS LIDOCAINE 2% 15 ML UDC MM STA (12:35)
[2021-12-01 12:55] LABS: *AMPHETAMINES SCREEN URINE NEGATIVE (NEGATIVE); *BARBITURATES SCREEN URINE NEGATIVE (NEGATIVE); *BENZODIAZEPINES SCREEN URINE PRESUMTIVE POSITIVE (NEGATIVE); *COCAINE SCREEN URINE NEGATIVE (NEGATIVE); CANNABINOID URINE SCREEN NEGATIVE (NEGATIVE); METHADONE URINE SCREEN NEGATIVE (NEGATIVE); OPIATES URINE SCREEN NEGATIVE (NEGATIVE); PHENCYCLIDINE URINE SCREEN NEGATIVE (NEGATIVE)
[2021-12-01] MEDS ORDERED: MAGNESIUM/ALUMINUM HYDROXIDE/SIMETHICONE 30ML UDC PO NR (15:00)
[2021-12-01] MEDS ORDERED: ENOXAPARIN 40MG/0.4ML SYR SUBCUT SCH (15:00)
[2021-12-01] MEDS ORDERED: MVI, ADULT NO.1 10 ML, FOLIC ACID 1 MG, THIAMINE HCL 100 MG in SODIUM CHLORIDE 0.9% 1,0... IV ONE ×4 (15:00)
[2021-12-01] MEDS ORDERED: MAGNESIUM/ALUMINUM HYDROXIDE/SIMETHICONE 30ML UDC PO PRN (15:00)
[2021-12-01] MEDS ORDERED: VISCOUS LIDOCAINE 2% 15 ML UDC MM NR (15:00)
[2021-12-01] MEDS ORDERED: CLONIDINE 0.1MG TABLET PO PRN (15:00)
[2021-12-01] MEDS: DEXT 5%/0.45% NACL KCL 20MEQ/L 1,000 ML IV SCH ×2 (17:01→22:51)
[2021-12-01 18:58] VITALS: BP 128/70
[2021-12-01 19:14] LABS: TOTAL IRON BINDING CAPACITY 367 ug/dL (250-450)
[2021-12-01 20:00] VITALS: BP 119/76
[2021-12-01] MEDS: ACETAMINOPHEN 325MG TABLET PO PRN (21:12)
[2021-12-01] MEDS: PANTOPRAZOLE SODIUM 40 MG/VIAL IV SCH (21:12)
[2021-12-01] MEDS: CHLORDIAZEPOXIDE 25MG CAPSULE PO SCH (21:28)
[2021-12-02] VITALS (7 sets, daily range): BP systolic 119–144; BP diastolic 71–93
[2021-12-02] MEDS ORDERED: ONDANSETRON HCL 4MG/2ML INJ IV PRN
[2021-12-02] MEDS: THROAT LOZENGES-BENZOCAINE/MENTH/CETYLPYRD CL LOZENGES MM PRN ×2 (01:11→09:53)
[2021-12-02 01:49] LABS: CREATINE KINASE MB FRACTION < 1.0 ng/mL (0.5-3.6)
[2021-12-02] MEDS: HYDROCODONE/ACETAMINOPHEN 5/325MG TABLET PO PRN (04:43)
[2021-12-02] MEDS ORDERED: NALOXONE HCL 0.4MG/ML VIAL IV PRN (04:45)
[2021-12-02] MEDS: ENOXAPARIN 30MG/0.3ML SYR SUBCUT SCH ×2 (06:56→18:32)
[2021-12-02] MEDS: CHLORDIAZEPOXIDE 25MG CAPSULE PO SCH ×3 (06:56→23:08)
[2021-12-02] MEDS: ACETAMINOPHEN 325MG TABLET PO PRN (07:03)
[2021-12-02 07:24] LABS: BASOPHILS % 0.3 % (0.0-2.0); EOSINOPHILS % 0.5 % (0.0-5.0); HEMATOCRIT. 40.4 % (42.0-52.0); HEMOGLOBIN. 13.5 g/dL (14.0-18.0); LYMPHOCYTES % 45.4 % (20.0-50.0); MEAN CORPUSCULAR HEMOGLOBIN 30.1 pg (28.0-32.0); MEAN PLATELET VOLUME 7.5 fl (7.4-10.4); MONOCYTES % 7.7 % (2.0-8.0); NEUTROPHILS % 46.1 % (40.0-76.0); PLATELET 240 x1000/uL (130-400); RED BLOOD CELL COUNT 4.49 mill/uL (4.7-6.1); RED CELL DISTRIBUTION WIDTH 15.2 % (11.6-14.6)
[2021-12-02 07:32] LABS: CHLORIDE 110 mEq/L (98-107)
[2021-12-02 07:40] LABS: PHOSPHORUS 2.3 mg/dL (2.5-4.9)
[2021-12-02 07:41] LABS: CREATINE KINASE MB FRACTION < 1.0 ng/mL (0.5-3.6); LDL CHOLESTEROL 48 mg/dL (5-100)
[2021-12-02 07:43] LABS: HDL CHOLESTEROL 78 mg/dL (40-59); T4 FREE 0.85 ng/dL (0.76-1.46)
[2021-12-02] MEDS: PANTOPRAZOLE SODIUM 40 MG/VIAL IV SCH ×2 (09:37→20:53)
[2021-12-02] MEDS: LOSARTAN POTASSIUM 25 MG TABLET PO SCH (13:35)
[2021-12-02] MEDS: SUCRALFATE 1 G/10 ML UDC PO SCH ×3 (13:35→20:53)
[2021-12-02] MEDS: TAMSULOSIN HCL 0.4MG SR CAPSULE PO SCH (13:36)
[2021-12-02] MEDS ORDERED: VISCOUS LIDOCAINE 2% 15 ML UDC MM NR (17:00)
[2021-12-02] MEDS ORDERED: POTASSIUM PHOS,M-BASIC-D-BASIC 15 MMOL in DEXT 5% WATER 245 ML IV NR (18:00)
[2021-12-02 18:05] LABS: AMYLASE 157 IU/L (25-115)
[2021-12-02 18:12] LABS: CREATINE KINASE MB FRACTION < 1.0 ng/mL (0.5-3.6)
[2021-12-02 19:14] LABS: CREATINE KINASE 74 IU/L (39-308)
[2021-12-02] MEDS: QUETIAPINE FUMARATE 25MG TABLET PO SCH (20:53)
[2021-12-02] MEDS: PROPRANOLOL HCL 10MG TABLET PO SCH (21:15)
[2021-12-02] MEDS: MAGNESIUM/ALUMINUM HYDROXIDE/SIMETHICONE 30ML UDC PO PRN (21:31)
[2021-12-03] VITALS: BP 127/68
[2021-12-03] MEDS: DEXT 5%/0.45% NACL KCL 20MEQ/L 1,000 ML IV SCH ×4 (00:05→23:18)
[2021-12-03] MEDS: HYDROCODONE/ACETAMINOPHEN 5/325MG TABLET PO PRN ×2 (00:55→09:59)
[2021-12-03 04:00] VITALS: BP 119/65
[2021-12-03] MEDS: SUCRALFATE 1 G/10 ML UDC PO SCH ×4 (06:10→21:01)
[2021-12-03] MEDS: CHLORDIAZEPOXIDE 25MG CAPSULE PO SCH ×3 (06:11→23:17)
[2021-12-03] MEDS: ENOXAPARIN 30MG/0.3ML SYR SUBCUT SCH ×2 (06:11→17:05)
[2021-12-03 08:00] VITALS: BP 123/81
[2021-12-03 08:01] LABS: HEMATOCRIT. 41.9 % (42.0-52.0); HEMOGLOBIN. 13.9 g/dL (14.0-18.0); MEAN CORPUSCULAR HEMOGLOBIN 30.2 pg (28.0-32.0); MEAN CORPUSCULAR VOLUME 91.1 fL (80.0-94.0); MEAN PLATELET VOLUME 7.5 fl (7.4-10.4); PLATELET 258 x1000/uL (130-400); RED BLOOD CELL COUNT 4.59 mill/uL (4.7-6.1); RED CELL DISTRIBUTION WIDTH 15.6 % (11.6-14.6)
[2021-12-03 08:09] LABS: CHLORIDE 108 mEq/L (98-107)
[2021-12-03] MEDS: PANTOPRAZOLE SODIUM 40 MG/VIAL IV SCH ×2 (09:53→21:01)
[2021-12-03] MEDS: LOSARTAN POTASSIUM 25 MG TABLET PO SCH (09:53)
[2021-12-03] MEDS: TAMSULOSIN HCL 0.4MG SR CAPSULE PO SCH (09:54)
[2021-12-03] MEDS: PROPRANOLOL HCL 10MG TABLET PO SCH ×2 (09:54→21:01)
[2021-12-03 11:37] LABS: PLATELET ESTIMATE NORMAL
[2021-12-03 12:00] VITALS: BP 122/70
[2021-12-03 16:00] VITALS: BP 110/66
[2021-12-03 16:46] LABS: FOLIC ACID (FOLATE) SERUM 8.3 ng/mL (>5.38)
[2021-12-03] MEDS: MAGNESIUM/ALUMINUM HYDROXIDE/SIMETHICONE 30ML UDC PO SCH (17:04)
[2021-12-03] MEDS: VISCOUS LIDOCAINE 2% 15 ML UDC MM SCH (17:42)
[2021-12-03 20:00] VITALS: BP 126/98
[2021-12-03] MEDS: QUETIAPINE FUMARATE 25MG TABLET PO SCH (21:01)
[2021-12-03] MEDS: MAGNESIUM/ALUMINUM HYDROXIDE/SIMETHICONE 30ML UDC PO PRN (21:01)
[2021-12-04] VITALS: BP 125/79
[2021-12-04 04:00] VITALS: BP 115/84
[2021-12-04] MEDS: SUCRALFATE 1 G/10 ML UDC PO SCH ×4 (06:22→20:34)
[2021-12-04] MEDS: ENOXAPARIN 30MG/0.3ML SYR SUBCUT SCH ×2 (06:23→17:17)
[2021-12-04] MEDS: CHLORDIAZEPOXIDE 25MG CAPSULE PO SCH ×3 (06:23→21:00)
[2021-12-04 06:26] LABS: CHLORIDE 106 mEq/L (98-107)
[2021-12-04 06:28] LABS: HEMATOCRIT. 43.6 % (42.0-52.0); HEMOGLOBIN. 14.6 g/dL (14.0-18.0); MEAN CORPUSCULAR HEMOGLOBIN 30.2 pg (28.0-32.0); MEAN CORPUSCULAR VOLUME 90.6 fL (80.0-94.0); MEAN PLATELET VOLUME 7.4 fl (7.4-10.4); PLATELET 252 x1000/uL (130-400); RED BLOOD CELL COUNT 4.82 mill/uL (4.7-6.1); RED CELL DISTRIBUTION WIDTH 15.3 % (11.6-14.6)
[2021-12-04 06:32] LABS: AMYLASE 135 IU/L (25-115)
[2021-12-04 08:00] VITALS: BP 119/85
[2021-12-04] MEDS: VISCOUS LIDOCAINE 2% 15 ML UDC MM SCH ×3 (09:00→17:16)
[2021-12-04] MEDS: MAGNESIUM/ALUMINUM HYDROXIDE/SIMETHICONE 30ML UDC PO SCH ×3 (09:00→17:17)
[2021-12-04] MEDS: PANTOPRAZOLE SODIUM 40 MG/VIAL IV SCH ×2 (09:00→20:34)
[2021-12-04] MEDS: MULTIVITAMINS,THER W-MINERALS TABLET PO SCH (09:01)
[2021-12-04] MEDS: TAMSULOSIN HCL 0.4MG SR CAPSULE PO SCH (09:01)
[2021-12-04] MEDS: LOSARTAN POTASSIUM 25 MG TABLET PO SCH (09:01)
[2021-12-04] MEDS: PROPRANOLOL HCL 10MG TABLET PO SCH ×2 (09:02→20:34)
[2021-12-04] MEDS: DEXT 5%/0.45% NACL KCL 20MEQ/L 1,000 ML IV SCH ×2 (09:06→15:25)
[2021-12-04] MEDS: HYDROCODONE/ACETAMINOPHEN 5/325MG TABLET PO PRN ×2 (09:30→21:04)
[2021-12-04 12:00] VITALS: BP 135/82
[2021-12-04] MEDS ORDERED: XLV MM (12:25)
[2021-12-04] MEDS ORDERED: MYL30 PO (12:25)
[2021-12-04 13:35] LABS: PLATELET ESTIMATE NORMAL
[2021-12-04 16:00] VITALS: BP 133/90
[2021-12-04 20:00] VITALS: BP 118/84
[2021-12-04] MEDS: QUETIAPINE FUMARATE 25MG TABLET PO SCH (20:34)
[2021-12-05] VITALS: BP 114/70
[2021-12-05 04:00] VITALS: BP 120/69
[2021-12-05] MEDS: ENOXAPARIN 30MG/0.3ML SYR SUBCUT SCH ×2 (05:16→17:39)
[2021-12-05] MEDS: CHLORDIAZEPOXIDE 25MG CAPSULE PO SCH ×2 (05:17→14:00)
[2021-12-05] MEDS: DEXT 5%/0.45% NACL KCL 20MEQ/L 1,000 ML IV SCH ×3 (06:05→17:38)
[2021-12-05 06:44] LABS: BASOPHILS % 0.3 % (0.0-2.0); EOSINOPHILS % 9.5 % (0.0-5.0); HEMATOCRIT. 44.5 % (42.0-52.0); HEMOGLOBIN. 14.8 g/dL (14.0-18.0); LYMPHOCYTES % 42.5 % (20.0-50.0); MEAN CORPUSCULAR HEMOGLOBIN 30.2 pg (28.0-32.0); MEAN CORPUSCULAR VOLUME 90.7 fL (80.0-94.0); MEAN PLATELET VOLUME 7.5 fl (7.4-10.4); MONOCYTES % 11.8 % (2.0-8.0); NEUTROPHILS % 35.9 % (40.0-76.0); PLATELET 245 x1000/uL (130-400); RED BLOOD CELL COUNT 4.91 mill/uL (4.7-6.1); RED CELL DISTRIBUTION WIDTH 15.7 % (11.6-14.6)
[2021-12-05] MEDS: SUCRALFATE 1 G/10 ML UDC PO SCH ×3 (07:04→17:39)
[2021-12-05 07:08] LABS: CHLORIDE 107 mEq/L (98-107)
[2021-12-05 07:17] LABS: AMYLASE 118 IU/L (25-115)
[2021-12-05 07:49] LABS: PROTHROMBIN TIME 10.8 sec (9.6-11.0)
[2021-12-05 08:00] VITALS: BP 141/86
[2021-12-05] MEDS: PROPRANOLOL HCL 10MG TABLET PO SCH ×2 (09:00→20:18)
[2021-12-05] MEDS: VISCOUS LIDOCAINE 2% 15 ML UDC MM SCH ×3 (09:00→17:38)
[2021-12-05] MEDS: LOSARTAN POTASSIUM 25 MG TABLET PO SCH (09:00)
[2021-12-05] MEDS: MAGNESIUM/ALUMINUM HYDROXIDE/SIMETHICONE 30ML UDC PO SCH ×3 (09:00→17:39)
[2021-12-05] MEDS: MULTIVITAMINS,THER W-MINERALS TABLET PO SCH (09:00)
[2021-12-05] MEDS: TAMSULOSIN HCL 0.4MG SR CAPSULE PO SCH (09:00)
[2021-12-05] MEDS: PANTOPRAZOLE SODIUM 40 MG/VIAL IV SCH ×2 (09:40→20:18)
[2021-12-05 12:00] VITALS: BP 101/77
[2021-12-05] MEDS ORDERED: MIDAZOLAM HCL 5 MG/5 ML VIAL ONE (13:35)
[2021-12-05] MEDS ORDERED: PROPOFOL 200MG/20ML VIAL IV ONE (13:36)
[2021-12-05] MEDS ORDERED: LIDOCAINE HCL 1% 10 MG/ML 10ML VIAL ONE (13:36)
[2021-12-05 16:00] VITALS: BP 120/82
[2021-12-05] MEDS ORDERED: SUCR1TAB30 MT (18:36)
[2021-12-05] MEDS ORDERED: SUCR1ORA15 PO (18:36)
[2021-12-05] MEDS ORDERED: PROT40 MT (18:36)
[2021-12-05] MEDS ORDERED: CHLO25CA10 MT (18:39)
[2021-12-05 19:59] VITALS: BP 139/94
[2021-12-05] MEDS: QUETIAPINE FUMARATE 25MG TABLET PO SCH (20:18)
[2021-12-05] MEDS ORDERED: SUCRALFATE 1G TABLET PO SCH (21:00)
== END 2021-12-05 20:35 | disposition home or self-care (01) | DRG 917 ==
LOC: ER 10:12 → 8WST 12:14 → EDBEDREQTM 12:27 → EDBEDREQ 12:27 → ENRESERV 14:22
PROVIDERS: ADMIT Internal Medicine; ATTEND Internal Medicine
PROC: 0DB78ZX Excision of Stomach, Pylorus, Via Natural or Artificial Opening Endoscopic, Diagnostic (ICD-10-PCS; principal; 2021-12-05)
DX: T51.2X1A Toxic effect of 2-Propanol, accidental (unintentional), initial encounter (principal); K85.20 Alcohol induced acute pancreatitis without necrosis or infection; I50.32 Chronic diastolic (congestive) heart failure; I85.00 Esophageal varices without bleeding; K22.10 Ulcer of esophagus without bleeding; F10.10 Alcohol abuse, uncomplicated; K29.50 Unspecified chronic gastritis without bleeding; E78.5 Hyperlipidemia, unspecified; E87.6 Hypokalemia; I11.0 Hypertensive heart disease with heart failure; K76.0 Fatty (change of) liver, not elsewhere classified; N32.0 Bladder-neck obstruction; E16.2 Hypoglycemia, unspecified; F41.1 Generalized anxiety disorder; Z96.653 Presence of artificial knee joint, bilateral; E03.9 Hypothyroidism, unspecified; E66.9 Obesity, unspecified; M13.0 Polyarthritis, unspecified; R13.12 Dysphagia, oropharyngeal phase; K21.9 Gastro-esophageal reflux disease without esophagitis; Z20.822 Contact with and (suspected) exposure to COVID-19; E78.00 Pure hypercholesterolemia, unspecified; Y90.0 Blood alcohol level of less than 20 mg/100 ml; R73.9 Hyperglycemia, unspecified; I25.2 Old myocardial infarction; Z79.899 Other long term (current) drug therapy; Z82.49 Family history of ischemic heart disease and other diseases of the circulatory system; Z68.35 Body mass index [BMI] 35.0-35.9, adult; Y92.89 Other specified places as the place of occurrence of the external cause; K29.60 Other gastritis without bleeding; Z71.41 Alcohol abuse counseling and surveillance of alcoholic
CPT/HCPCS: 36415; 71045; 80048; 80053; 80061; 80076; 80305; 80307; 80320; 80329; 81003; 82140; 82150; 82550; 82553; 82607; 82746; 83540; 83550; 83735; 83880; 83930; 83935; 84100; 84439; 84443; 84484; 85025; 87426; 88305; 88312; 88313; 93005; 93306; 93970; 99291; C1893; C9113; J1650; J2250; J2405; J2704; J3411; J3490; J7030; J7060; G0480